=== PATIENT | male | born 1955 | race Caucasian/White ===

== ENCOUNTER 2020-04-12 11:01 | Inpatient (IN) | payer BC ==
[~2020-04-12] VITALS: Ht 177.8 cm; Wt 75.7 kg
[2020-04-12 11:30] VITALS: BP_SYST 154
[2020-04-12 11:31] LABS: BASOPHILS % (AUTO) 0.2 % (0.0-2.0); EOSINOPHILS % (AUTO) 0.1 % (0.0-4.0); HEMATOCRIT 52.6 % (36-54); HEMOGLOBIN 17.4 g/dL (14.0-18.0); LYMPHOCYTES # (AUTO) 1.2 K/uL (1.0-5.5); LYMPHOCYTES % (AUTO) 7.7 % (20.5-51.5); MEAN CORPUSCULAR HEMOGLOBIN 30 pg (27-31); MEAN CORPUSCULAR HGB CONC 33 % (32-36); MEAN CORPUSCULAR VOLUME 90 fL (79.0-98.0); MONOCYTES # (AUTO) 0.8 K/uL (0.0-1.0); NEUTROPHILS # (AUTO) 13.7 K/uL (1.8-7.7); PLATELET COUNT (AUTO) 188 K/uL (130-430); RED BLOOD CELL COUNT(AUTO) 5.87 MIL/uL (4.2-6.2); RED CELL DISTRIBUTION WIDTH 13.8 % (9.0-15.0); WHITE BLOOD COUNT (AUTO) 15.8 K/uL (4.8-10.8)
[2020-04-12 11:44] LABS: INR 1.2 (0.80-1.20); PROTHROMBIN TIME 12.1 SECS (9.5-12.5)
[2020-04-12 11:49] LABS: CALCIUM 9.4 mg/dL (8.4-11.0); CREATININE 1.04 mg/dL (0.55-1.30); POTASSIUM 4.1 mmol/L (3.5-5.1)
[2020-04-12 11:54] LABS: TOTAL BILIRUBIN 0.9 mg/dL (0.0-1.0)
[2020-04-12] MEDS ORDERED: MORPHINE 2 MG/ML INJ. SYRINGE IVP ONE ×2 (12:00→12:45)
[2020-04-12] MEDS ORDERED: ONDANSETRON HCL 4 MG/2 ML VIAL IVP ONE (12:00)
[2020-04-12] MEDS ORDERED: PANTOPRAZOLE SODIUM 40 MG/VIAL (PROTONIX) IVP ONE ×2 (12:00→17:00)
[2020-04-12] MEDS ORDERED: LORazepam 2 MG/ML VIAL ONE (12:16)
[2020-04-12] MEDS ORDERED: LORazepam 2 MG/ML VIAL IVP ONE ×2 (12:45)
[2020-04-12] MEDS ORDERED: NACL 0.9% 1,000 ML IV ONE (13:45)
[2020-04-12] MEDS ORDERED: PIPERACILLIN/TAZO 3.375 GM in NS 50 ML IV ONE (13:45)
[2020-04-12] MEDS ORDERED: metroNIDAZOLE 500 mg/NS 100 ML IV ONE (13:45)
[2020-04-12] MEDS ORDERED: LORazepam 2 MG/ML VIAL IVP PRN (14:00)
[2020-04-12] MEDS: KCL 20 mEq in 0.45% NS 1000 mL 1,000 ML IV SCH ×2 (14:57→23:30)
[2020-04-12 16:03] LABS: HEMATOCRIT 52.3 % (36-54); HEMOGLOBIN 17.1 g/dL (14.0-18.0)
[2020-04-12] MEDS ORDERED: ONDANSETRON HCL 4 MG/2 ML VIAL IVP PRN (17:30)
[2020-04-12] MEDS ORDERED: ACETAMINOPHEN 650 MG SUPP.RECT RC PRN (17:30)
[2020-04-12] MEDS ORDERED: NALOXONE HCL 0.4 MG/ML AMP (NARCAN) IVP PRN (17:30)
[2020-04-12] MEDS ORDERED: PIPERACILLIN/TAZOBACTAM 3.375 GM/VIAL (ZOSYN) IV ONE (17:33)
[2020-04-12 17:48] LABS: BARBITURATE, URINE NEGATIVE (NEG <=200); BENZODIAZEPINE, URINE POSITIVE (NEG <=150); CANNABINOID, URINE POSITIVE (NEG <=50); METHAMPHETAMINES SCREEN,URINE NEGATIVE (NEG <=500); OPIATE, URINE POSITIVE (NEG <=100); URINE AMPHETAMINE NEGATIVE (NEG <=500); URINE METHADONE NEGATIVE (NEG <=200)
[2020-04-12 17:49] LABS: COCAINE, URINE NEGATIVE (NEG <=150); PHENCYCLIDINE SCREEN,URINE NEGATIVE (NEG <=25); UR TRICYCLIC ANTIDEPRESSANTS NEGATIVE (NEG <=300); URINE OXYCODONE SCREEN NEGATIVE (NEG <=100); URINE PROPOXYPHENE SCREEN NEGATIVE (NEG <=300)
[2020-04-12] MEDS: MORPHINE 2 MG/ML INJ. SYRINGE IVP PRN (18:14)
[2020-04-12] MEDS: PIPERACILLIN/TAZO 4.5GM/DEX-IS 100 ML IV SCH (22:13)
[2020-04-13] VITALS (7 sets, daily range): BP systolic 131–148
[2020-04-13] MEDS: MORPHINE 2 MG/ML INJ. SYRINGE IVP PRN ×3 (04:32→13:09)
[2020-04-13] MEDS ORDERED: KCL 20 mEq in 0.45% NS 1000 mL 1,000 ML IV ONE (04:57)
[2020-04-13] MEDS: KCL 20 mEq in 0.45% NS 1000 mL 1,000 ML IV SCH ×2 (05:25→14:14)
[2020-04-13] MEDS: PIPERACILLIN/TAZO 4.5GM/DEX-IS 100 ML IV SCH ×3 (05:26→21:04)
[2020-04-13] MEDS ORDERED: DIATR MEGLU/DIATRIZ SOD 30 ML SOLUTION PO ONE (09:01)
[2020-04-13] MEDS: PANTOPRAZOLE SODIUM 40 MG/VIAL (PROTONIX) IVP SCH (09:05)
[2020-04-13 09:30] LABS: HEMATOCRIT 48.5 % (36-54); HEMOGLOBIN 16.2 g/dL (14.0-18.0); LYMPHOCYTES # (AUTO) 1.2 K/uL (1.0-5.5); LYMPHOCYTES % (AUTO) 8.1 % (20.5-51.5); MEAN CORPUSCULAR HEMOGLOBIN 30 pg (27-31); MEAN CORPUSCULAR HGB CONC 33 % (32-36); MEAN CORPUSCULAR VOLUME 89 fL (79.0-98.0); MONOCYTES # (AUTO) 1.2 K/uL (0.0-1.0); MONOCYTES % (AUTO) 8.5 % (1.7-9.3); NEUTROPHILS % (AUTO) 83.4 % (40.0-70.0); PLATELET COUNT (AUTO) 182 K/uL (130-430); RED BLOOD CELL COUNT(AUTO) 5.43 MIL/uL (4.2-6.2); RED CELL DISTRIBUTION WIDTH 13.5 % (9.0-15.0); WHITE BLOOD COUNT (AUTO) 14.4 K/uL (4.8-10.8)
[2020-04-13 09:59] LABS: ALBUMIN 3.8 g/dL (3.4-4.8); CREATININE 1.5 mg/dL (0.55-1.30); POTASSIUM 4.4 mmol/L (3.5-5.1); THYROID STIMULATING HORMONE 0.59 uIu/mL (0.34-4.82)
[2020-04-13 10:22] LABS: PROTHROMBIN TIME 10.1 SECS (9.5-12.5)
[2020-04-13 14:20] LABS: HEMATOCRIT 47.6 % (36-54); HEMOGLOBIN 15.7 g/dL (14.0-18.0)
[2020-04-14] MEDS: KCL 20 mEq in 0.45% NS 1000 mL 1,000 ML IV SCH ×3 (00:15→20:20)
[2020-04-14 00:22] VITALS: BP_SYST 148
[2020-04-14] MEDS: PIPERACILLIN/TAZO 4.5GM/DEX-IS 100 ML IV SCH ×3 (05:47→22:38)
[2020-04-14 06:49] LABS: CALCIUM 8.6 mg/dL (8.4-11.0); CREATININE 1.19 mg/dL (0.55-1.30); POTASSIUM 4.4 mmol/L (3.5-5.1)
[2020-04-14 06:50] LABS: BASOPHILS % (AUTO) 0.1 % (0.0-2.0); HEMATOCRIT 45.9 % (36-54); HEMOGLOBIN 15.2 g/dL (14.0-18.0); LYMPHOCYTES # (AUTO) 1.4 K/uL (1.0-5.5); LYMPHOCYTES % (AUTO) 11.5 % (20.5-51.5); MEAN CORPUSCULAR HEMOGLOBIN 30 pg (27-31); MEAN CORPUSCULAR HGB CONC 33 % (32-36); MEAN CORPUSCULAR VOLUME 90 fL (79.0-98.0); NEUTROPHILS # (AUTO) 9.6 K/uL (1.8-7.7); NEUTROPHILS % (AUTO) 80.4 % (40.0-70.0); PLATELET COUNT (AUTO) 158 K/uL (130-430); RED BLOOD CELL COUNT(AUTO) 5.08 MIL/uL (4.2-6.2); RED CELL DISTRIBUTION WIDTH 13.7 % (9.0-15.0); WHITE BLOOD COUNT (AUTO) 11.9 K/uL (4.8-10.8)
[2020-04-14 08:15] VITALS: BP_SYST 142
[2020-04-14] MEDS: PANTOPRAZOLE SODIUM 40 MG/VIAL (PROTONIX) IVP SCH (09:21)
[2020-04-14] MEDS: ATROPINE SULFATE 0.4 MG/ML VIAL IVP PRN ×2 (09:59→22:54)
[2020-04-14] MEDS: MIDAZOLAM HCL 5 MG/5 ML VIAL ONE ×4 (10:20→10:27)
[2020-04-14] MEDS ORDERED: MEPERIDINE HCL/PF 100 MG/ML AMP ONE (10:30)
[2020-04-14 12:00] VITALS: BP_SYST 126
[2020-04-14 16:56] VITALS: BP_SYST 115
[2020-04-14] MEDS ORDERED: METHOCARBAMOL 500 MG TABLET PO PRN (18:00)
[2020-04-14 20:00] VITALS: BP_SYST 127
[2020-04-15 00:04] VITALS: BP_SYST 161
[2020-04-15] MEDS ORDERED: HYDROcodone/ACETAMIN 5-325 MG TAB (NORCO/ VICODIN) PO PRN (01:00)
[2020-04-15] MEDS: HYDROcodone/ACETAMIN 10-325 MG TAB PO PRN ×4 (01:14→16:28)
[2020-04-15] MEDS: PIPERACILLIN/TAZO 4.5GM/DEX-IS 100 ML IV SCH ×2 (05:47→13:50)
[2020-04-15] MEDS: KCL 20 mEq in 0.45% NS 1000 mL 1,000 ML IV SCH (05:47)
[2020-04-15 07:51] LABS: CALCIUM 9.1 mg/dL (8.4-11.0); CREATININE 1.13 mg/dL (0.55-1.30); POTASSIUM 4.2 mmol/L (3.5-5.1)
[2020-04-15 07:52] LABS: BASOPHILS % (AUTO) 0.2 % (0.0-2.0); EOSINOPHILS % (AUTO) 0.1 % (0.0-4.0); HEMATOCRIT 46.9 % (36-54); HEMOGLOBIN 15.4 g/dL (14.0-18.0); LYMPHOCYTES # (AUTO) 2.2 K/uL (1.0-5.5); LYMPHOCYTES % (AUTO) 23.3 % (20.5-51.5); MEAN CORPUSCULAR HEMOGLOBIN 30 pg (27-31); MEAN CORPUSCULAR HGB CONC 33 % (32-36); MEAN CORPUSCULAR VOLUME 91 fL (79.0-98.0); MONOCYTES # (AUTO) 0.9 K/uL (0.0-1.0); MONOCYTES % (AUTO) 9.1 % (1.7-9.3); NEUTROPHILS # (AUTO) 6.3 K/uL (1.8-7.7); NEUTROPHILS % (AUTO) 67.3 % (40.0-70.0); PLATELET COUNT (AUTO) 155 K/uL (130-430); RED BLOOD CELL COUNT(AUTO) 5.17 MIL/uL (4.2-6.2); RED CELL DISTRIBUTION WIDTH 13.5 % (9.0-15.0); WHITE BLOOD COUNT (AUTO) 9.4 K/uL (4.8-10.8)
[2020-04-15 08:00] VITALS: BP_SYST 150
[2020-04-15] MEDS: PANTOPRAZOLE SODIUM 40 MG/VIAL (PROTONIX) IVP SCH (08:45)
[2020-04-15 12:17] VITALS: BP_SYST 155
[2020-04-15 15:28] VITALS: BP_SYST 152
[2020-04-15] MEDS ORDERED: PANT20TA2 PO (15:43)
[2020-04-15] MEDS ORDERED: SUCR1TAB78 PO (15:44)
[2020-04-15] MEDS ORDERED: HYDR-4273 PO (15:50)
[2020-04-15] MEDS ORDERED: ACET-2634 PO (15:51)
[2020-04-15 16:12] VITALS: BP_SYST 152
== END 2020-04-15 17:33 | disposition home or self-care (01) | DRG 391 ==
LOC: SED 11:01 → STU 14:16 → SIC 14:51 → STU 04-13 02:21
PROVIDERS: ADMIT Internal Medicine; ATTEND Internal Medicine
PROC: 0DB78ZX Excision of Stomach, Pylorus, Via Natural or Artificial Opening Endoscopic, Diagnostic (ICD-10-PCS; 2020-04-14)
PROC: 0DB58ZX Excision of Esophagus, Via Natural or Artificial Opening Endoscopic, Diagnostic (ICD-10-PCS; principal; 2020-04-14 11:00)
DX: K21.0 Gastro-esophageal reflux disease with esophagitis (principal); K29.71 Gastritis, unspecified, with bleeding; M48.54XA Collapsed vertebra, not elsewhere classified, thoracic region, initial encounter for fracture; G40.89 Other seizures; K44.9 Diaphragmatic hernia without obstruction or gangrene; E78.5 Hyperlipidemia, unspecified; I10 Essential (primary) hypertension; D72.829 Elevated white blood cell count, unspecified; K66.8 Other specified disorders of peritoneum; F12.90 Cannabis use, unspecified, uncomplicated; F15.90 Other stimulant use, unspecified, uncomplicated; Z79.891 Long term (current) use of opiate analgesic; Z03.818 Encounter for observation for suspected exposure to other biological agents ruled out
CPT/HCPCS: 36415; 70450-TC; 71045; 72080-TC; 72128; 80048; 80053; 80307; 82140-TC; 82150-TC; 83690-TC; 84443-TC; 84484; 85018-TC; 85025; 85610-TC; 85730-TC; 86886; 86900; 86901; 87040-TC; 87081; 87086; 93005; 93306; 96365; 96367; 96375; 99285; C9113; G0378; G0482; J0461; J2060; J2175; J2250; J2270; J2405; J2543; J3480; J3490; J7030; Q9964; U0003-CS

== ENCOUNTER 2020-04-16 04:42 | Emergency (ER) | payer BC ==
[~2020-04-16] VITALS: Ht 182.9 cm; Wt 74.8 kg
[~2020-04-16 04:42] MED LIST: ACET-2634 PO; HYDR-4273 PO; PANT20TA2 PO; SUCR1TAB78 PO
[2020-04-16 04:58] VITALS: BP_SYST 166
--- NOTE | 2020-04-16 04:58 | NUR ---
Placed in room 6 . Placed on disbursement clerk, blood pressure machine and pulse oximeter. To gown for exam. Side rails up.
--- NOTE | 2020-04-16 05:01 | NUR ---
ER at bedside examining patient.
--- NOTE | 2020-04-16 05:02 | NUR ---
Pt presents to the ER c/o upper R mid back pain x 2 days. Pt had recent visit to [facility] ER for abdominal pain. Pt had new onset of seizure while admitted which caused the back pain. Pt states taking the norco prescribed for home which helped w/ the pain but pain returned. Currently rates pain 8/10.
[2020-04-16] MEDS ORDERED: traMADol HCL HCL 50 MG TABLET (ULTRAM) PO ONE (05:15)
[2020-04-16] MEDS ORDERED: LIDOCAINE VISCOUS 2%, 15 ML UDC MM ONE (05:15)
[2020-04-16] MEDS ORDERED: DICYCLOMINE HCL 10 MG/5 ML SOLUTION PO ONE (05:15)
[2020-04-16] MEDS ORDERED: MAG-AL HYDROX/SIMETH 30 ML UDC PO ONE (05:15)
[2020-04-16 06:28] LABS: HEMOGLOBIN 15.8 g/dL (14.0-18.0); MONOCYTES # (AUTO) 0.7 K/uL (0.0-1.0)
[2020-04-16 06:32] LABS: BASOPHILS % (AUTO) 0.3 % (0.0-2.0); EOSINOPHILS % (AUTO) 0.4 % (0.0-4.0); HEMATOCRIT 47.6 % (36-54); LYMPHOCYTES # (AUTO) 1.3 K/uL (1.0-5.5); LYMPHOCYTES % (AUTO) 15.5 % (20.5-51.5); MEAN CORPUSCULAR HEMOGLOBIN 30 pg (27-31); MEAN CORPUSCULAR HGB CONC 33 % (32-36); MEAN CORPUSCULAR VOLUME 89 fL (79.0-98.0); NEUTROPHILS # (AUTO) 6.1 K/uL (1.8-7.7); NEUTROPHILS % (AUTO) 74.8 % (40.0-70.0); PLATELET COUNT (AUTO) 157 K/uL (130-430); RED BLOOD CELL COUNT(AUTO) 5.34 MIL/uL (4.2-6.2); RED CELL DISTRIBUTION WIDTH 13.1 % (9.0-15.0); WHITE BLOOD COUNT (AUTO) 8.1 K/uL (4.8-10.8)
[2020-04-16 06:35] LABS: CALCIUM 9.1 mg/dL (8.4-11.0); CREATININE 1.02 mg/dL (0.55-1.30); POTASSIUM 3.8 mmol/L (3.5-5.1)
[2020-04-16 06:40] LABS: ALBUMIN 3.2 g/dL (3.4-4.8)
[2020-04-16 06:48] VITALS: BP_SYST 166
--- NOTE | 2020-04-16 06:48 | NUR ---
Patient given written and verbal discharge instructions and verbalizes understanding. ER MD discussed with patient the results and treatment provided. Patient in stable condition. ID arm band removed. Rx of narcan , bentyl and Mona 5mg given. Patient educated on pain management and to follow up with PMD. Pain Scale 3/10. Opportunity for questions provided and answered. Medication side effect fact sheet provided.
== END 2020-04-16 06:48 | disposition home or self-care (01) ==
LOC: SED 04:42
DX: R10.13 Epigastric pain (principal); M54.6 Pain in thoracic spine; Z79.899 Other long term (current) drug therapy
CPT/HCPCS: 36415; 80053; 83690; 85025; 93005; 99284; J2001